=== PATIENT | male | born 1940 | race Caucasian/White ===

== ENCOUNTER 2016-12-27 05:35 | Inpatient (IN) | payer MEDICARE, BC ==
--- NOTE | ~2016-12-27 | DS ---
Discharge Summary [address] [place]. [address] NAME: REBEKA BRANDT : 39 STATUS : DIS IN PAT#: [id number] AGE: 76 ADM/REG DATE : 12/27/16 MR#: [id number] REPORT SERV DATE: 12/31/16 DICTATED BY: TOMÁS BARRERA DATE: 12/30/16 REPORT STATUS : Draft TRANSCRIBED BY: MODL DATE: 12/30/16 ADMISSION DATE: 12/27/2016 DISCHARGE DATE: 12/30/2016 DISCHARGE DIAGNOSES: Include: 1. Severe anemia of iron deficiency and blood loss, most recent hemoglobin and hematocrit 8.8 and 28.1. 2. Dyspnea with exertion, improved. 3. Hypothyroidism, new diagnosis TSH is 4.580, Synthroid started. 4. Hypertension. 5. History of coronary artery disease and prior drug-eluting stent placement in March of 2016 on Plavix and aspirin. 6. Hyperlipidemia. 7. Chronic constipation. DISCHARGE MEDICATIONS: Are as follows: Aspirin 81 mg daily, Plavix 75 mg daily, lisinopril 20 mg daily, Protonix 40 mg daily prescription written for this, Synthroid 25 mcg daily prescription written for this, metformin 500 mg p.o. in the morning 1000 mg in the evening. Lipitor 40 mg at bedtime, ferrous sulfate 325 mg p.o. twice a day with breakfast and supper, prescription written for this, and Colace 100 mg p.o. daily prescription written for that. HISTORY OF PRESENT ILLNESS: A very pleasant 76-year-old white male, who had originally presented for an elective heart catheterization but was found to be severely anemic and was symptomatic with this anemia with severe dyspnea with exertion. Hospitalist Service was asked to admit the patient for further evaluation and treatment. Please see my initial H and P. CONSULTANTS: Consultants during this admission include gastrointestinal Dr. Eldon Jacobson. PROCEDURES AND IMAGING DURING THIS ADMISSION: Include an upper GI endoscopy performed on 12/29/2016 that showed benign appearing intrinsic mild stenosis found at the gastroesophageal junction. Stomach normal and duodenum was normal. He then proceeded to have a colonoscopy on 12/29/2016, however, there was insufficient preparation and colonoscopy was repeated the following day, on 12/30/2016 showing a terminal ilium normal, multiple medium mouthed diverticula found in the sigmoid colon. No diverticulitis. CONTINUATION OF HOSPITAL COURSE: Initially given the profound anemia and symptoms of dyspnea with exertion and weakness, the patient was immediately transfused two units of packed red blood cells. He was also found to be severely iron deficient with a ferritin of 2, and the IV iron protocol was initiated while consultation was placed to GI. Interestingly, his orthostatics during this admission were reasonable and within normal limits. He had serial H and Hs follow his lab work and his H and H climbed with transfusion to 7.0 and 22.8 and then continued climbing up to 9.3 and 30.0. He did get an additional two units of packed red blood cells for a total of four during this admission which he tolerated well. He had the above described upper endoscopy and colonoscopy procedures and tolerated both those well. His symptoms have improved a great deal. He is able to be ambulating in the room and Discharge Summary [address] [place]. [address] NAME: REBEKA BRANDT : 39 STATUS : DIS IN PAT#: [id number] AGE: 76 ADM/REG DATE : 12/27/16 MR#: [id number] REPORT SERV DATE: 12/31/16 DICTATED BY: TOMÁS BARRERA DATE: 12/30/16 REPORT STATUS : Draft TRANSCRIBED BY: MODL DATE: 12/30/16 [facility]. He is eating and drinking, feeling much better. Current plan is for outpatient followup with Dr. Goodman BLAKELY for a capsule PillCam to further assess any bleeding. He will be discharged home on the above medication regimen. He will need to have his TSH rechecked in four to six weeks. I have instructed him to follow up with primary care in relation to this and also to follow up with primary care within the next week to have an H and H checked as well. The patient is in agreement with this plan going forward. Questions were answered at the bedside. Please note greater than 30 minutes were spent on this discharge for medication teaching, followup planning, and further disposition. Most recent H and H is 8.8 and 28.1. The patient's primary care was Dr. Kelton Luke, vegetable specker Dr. Cruz, and neurologist Dr. Hanson. CSC/MODL Tomás Barrera NP / [id number] CC: MD Kelton Parrish II, M.D.
--- NOTE | ~2016-12-27 | HP ---
History And Physical [address] [place]. [address] NAME: REBEKA BRANDT : 39 STATUS : REG REF PAT#: [id number] AGE: 76 ADM/REG DATE : 12/27/16 MR#: [id number] REPORT SERV DATE: 12/27/16 DICTATED BY: TOMÁS BARRERA DATE: 12/27/16 REPORT STATUS : Draft TRANSCRIBED BY: MODL DATE: 12/27/16 DATE OF ADMISSION: 12/27/2016 CHIEF COMPLAINT: Shortness of breath and profound anemia. HISTORY OF PRESENT ILLNESS: This is a pleasant, 76-year-old, white male, who presented to the [facility] today for an elective heart catheterization but was found to be significantly anemic with a hemoglobin of 4.8. He reports that he had a heart catheterization in 03/[address] Ceasar Cruz. At that time, had a drug-eluting stent placement and initially been placed on Brilinta but this was subsequently changed to Plavix and aspirin. Since then he has had some difficulties with persistent shortness of breath that has progressively worsened particularly over the last few weeks and has actually had an outpatient pulmonary workup done that was essentially normal with normal PFTs and normal CT scan of the chest, but he describes severe fatigue. He describes significant shortness of breath and dyspnea with exertion and even up into having difficulty with activities of daily living like getting out of bed and eating a meal just causes him to be extremely short of breath and extremely fatigued. He denies any chest pain. He denies any nausea or vomiting. Denies any abdominal pain. Does not relate that his stools have been bloody or dark. Does not relate that his urine has been bloody or abnormal as well but he states that he does not necessarily look in his stools either. The patient reports that even walking short distances causes him extreme dyspnea and shortness of breath and that he has also been somewhat dizzy almost to the point of blacking out when standing up but has not had any syncope and has not fallen during this course of time. Hospitalist Service was consulted and has been asked to admit this patient for further evaluation and workup. ALLERGIES: NO KNOWN DRUG OR FOOD ALLERGIES. PAST MEDICAL HISTORY: Includes remote CVA with some mild left-sided weakness, coronary artery disease, diabetes type 2, hyperlipidemia, and shortness of breath. SURGICAL HISTORY: Includes prostate surgery, appendectomy, back surgery, neck surgery, hernia repair. FAMILY HISTORY: He does not know of any significant family history from his mother or father. Brother with liver cancer and a sister with kidney cancer. COUNSELING SERVICES DIRECTOR: Carlita Cruz M.D. NEUROLOGIST: Carolina Hanson M.D. He denies any blood disorders or clotting disorders that he knows of in his family as well. He denies any tobacco use and states that he has occasional alcoholic drinks. REVIEW OF SYSTEMS: Negative except for pertinents mentioned above in HPI. History And Physical [address] [address] NAME: REBEKA BRANDT : 39 STATUS : REG REF PAT#: [id number] AGE: 76 ADM/REG DATE : 12/27/16 MR#: [id number] REPORT SERV DATE: 12/27/16 DICTATED BY: TOMÁS BARRERA DATE: 12/27/16 REPORT STATUS : Draft TRANSCRIBED BY: MODAngela DATE: 12/27/16 PHYSICAL EXAMINATION: VITAL SIGNS: 99% saturation on room air, temperature 98.1, pulse rate of 84, blood pressure 147/67, respiratory rate of 14. GENERAL: He is alert and oriented x3. No appreciable focal deficits on exam. He is cooperative and awake in no acute distress for the exam. No appreciable lymphadenopathy is noted. LUNGS: Clear to auscultation bilaterally. Normal respiratory effort. CARDIOVASCULAR: He has sinus rhythm per the monitor. Regular rate and rhythm. No murmurs, rubs, or gallops are appreciated on auscultation of the chest. ABDOMEN: Soft and nontender with active bowel sounds. He does have some +1 edema in bilateral lower extremities, particularly around the ankle. PERRLA is noted. Sclerae clear. Otherwise, skin is warm and dry and he has no significant rashes, bruising or wounds anywhere on his skin. LAB WORK: Shows a sodium 142, potassium 4.2, BUN of 13, creatinine 1.18. White blood cells 4.8, hemoglobin 4.6, hematocrit 16.5, platelets 388. INR of 1.1. ASSESSMENT: 1. Anemia of blood loss with H and H 4.6 and 16.5. 2. Persistent shortness of breath and dyspnea with exertion. 3. History of coronary artery disease, on antiplatelet therapy, prior stenting. 4. Diabetes type 2. 5. Hyperlipidemia. PLAN: We will plan on transfusing packed red blood cells 2 units following lab work closely with serial H and H's and we will obtain a CMP, hemoglobin A1c, TSH, and iron studies with a ferritin, B12, folate, TIBC. We will obtain urinalysis and also Hemoccult stool. We will also consult GI for further evaluation as likely gastrointestinal bleeding. We will admit the patient, Hospitalist Service to Telemetry Floor for further monitoring and transfusions and further workup and evaluation pending this initial testing to be performed. Also check orthostatics on the patient as well. I have updated the patient and his at the bedside. They are in agreement with this plan going forward. GREG/FRED Tomás Barrera NP / [id number] CC: Jimmie Pérez M.D.
--- NOTE | ~2016-12-27 | EGD ---
EGD REPORT [facility] [address] [place]. [address] NAME: REBEKA SPENCE : 39 STATUS : ADM IN PAT#: [id number] AGE: 76 ADM/REG DATE : 12/27/16 MR#: [id number] REPORT SERV DATE: 12/29/16 DICTATED BY: ELDON JOHNSON DATE: 12/29/16 REPORT STATUS : Draft TRANSCRIBED BY: [facility] DATE: 12/29/16 Endoscopy Center Patient Name: Rebeka Spence Date of : 1940 Attending MD: ELDON JOHNSON MD Procedure Date No Time: 12/29/2016 Procedure: Upper GI endoscopy Indications: Iron deficiency anemia Referring MD: SPENCER MEJIA Medicines: Propofol per Anesthesia Complications: No immediate complications. Procedure: Pre-Anesthesia Assessment: - ASA Grade Assessment: III - A patient with severe systemic disease. - ASA Grade Assessment: E - Emergency. After obtaining informed consent, the endoscope was passed under direct vision. Throughout the procedure, the patient's blood pressure, pulse, and oxygen saturations were monitored continuously. The GIF H190 [id number] was introduced through the mouth, and advanced to the third part of duodenum. The upper GI endoscopy was accomplished without difficulty. The patient tolerated the procedure well. Findings: A benign-appearing, intrinsic mild stenosis was found at the gastroesophageal junction and was traversed. The entire examined stomach was normal. The examined duodenum was normal. Impression: - Benign-appearing esophageal stricture. - Normal stomach. - Normal examined duodenum. Procedure Code(s): --- Professional --- 26482, Esophagogastroduodenoscopy, flexible, transoral; diagnostic, including collection of specimen(s) by brushing or washing, when performed (separate procedure) Diagnosis Code(s): --- Professional --- K22.2, Esophageal obstruction D50.9, Iron deficiency anemia, unspecified CPT copyright 2013 [employer]. All rights reserved. EGD REPORT [facility] [address] [place]. [address] NAME: REBEKA SPENCE : 39 STATUS : ADM IN [facility]#: [id number] AGE: 76 ADM/REG DATE : 12/27/16 MR#: [id number] REPORT SERV DATE: 12/29/16 DICTATED BY: ELDON JOHNSON. DATE: 12/29/16 REPORT STATUS : Draft TRANSCRIBED BY: [employer] SERVICES DATE: 12/29/16 The codes documented in this report are preliminary and upon sports book writer review may be revised to meet current compliance requirements. Edlon Johnson MD ELDON JOHNSON MD 12/29/2016 10:46 AM This report has been signed electronically. Number of Addenda: 0 Note Initiated On: 12/29/2016 10:21 AM Scope Withdrawal Time 0 hours 0 minutes 0 seconds [address] [place] [address]
--- NOTE | ~2016-12-27 | EGD ---
EGD REPORT [facility] [address] [address] NAME: REBEKA SPENCE : 39 STATUS : ADM IN PAT#: [id number] AGE: 76 ADM/REG DATE : 12/27/16 MR#: [id number] REPORT SERV DATE: 12/30/16 DICTATED BY: ELDON JOHNSON DATE: 12/30/16 REPORT STATUS : Draft TRANSCRIBED BY: [facility] DATE: 12/30/16 Endoscopy Center Patient Name: Rebeka Spence Date of : 1940 Attending MD: ELDON JOHNSON MD Procedure Date No Time: 12/30/2016 Procedure: Colonoscopy Indications: Iron deficiency anemia Referring MD: SPENCER MEJIA Medicines: Propofol per Anesthesia Complications: No immediate complications. Procedure: Pre-Anesthesia Assessment: - ASA Grade Assessment: III - A patient with severe systemic disease. After I obtained informed consent, the scope was passed under direct vision. Throughout the procedure, the patient's blood pressure, pulse, and oxygen saturations were monitored continuously. The PCF H190L [id number] was introduced through the anus and advanced to 5 cm into the ileum. The colonoscopy was performed without difficulty. The patient tolerated the procedure well. The quality of the bowel preparation was excellent. Scope withdrawal time was 8 minutes. Findings: The terminal ileum appeared normal. Multiple medium-mouthed diverticula were found in the sigmoid colon. The retroflexed view of the distal rectum and anal verge was normal and showed no anal or rectal abnormalities. Impression: - The examined portion of the ileum was normal. - Diverticulosis in the sigmoid colon. Recommendation: - Return patient to hospital [facility] for ongoing care. Procedure Code(s): --- Professional --- 29873, Colonoscopy, flexible, proximal to splenic flexure; diagnostic, with or without collection of specimen(s) by brushing or washing, with or without colon decompression (separate procedure) Diagnosis Code(s): --- Professional --- K57.30, Diverticulosis of large intestine without perforation or abscess without bleeding D50.9, Iron deficiency anemia, unspecified EGD REPORT [facility] [address] [place], [place] [address]. [address] NAME: REBEKA SPENCE : 39 STATUS : ADM IN [facility]#: [id number] AGE: 76 ADM/REG DATE : 12/27/16 MR#: [id number] REPORT SERV DATE: 12/30/16 DICTATED BY: ELDON JOHNSON. DATE: 12/30/16 REPORT STATUS : Draft TRANSCRIBED BY: [employer] DATE: 12/30/16 CPT copyright 2013 [employer]. All rights reserved. The codes documented in this report are preliminary and upon supervisor cold rolling review may be revised to meet current compliance requirements. Attending Participation: I personally performed the entire procedure. Eldon Johnson MD ELDON JOHNSON MD 12/30/2016 7:55 AM This report has been signed electronically. Number of Addenda: 0 Note Initiated On: 12/30/2016 7:03 AM Scope Withdrawal Time 0 hours 13 minutes [address] [place], [place] [address] [address]
--- NOTE | ~2016-12-27 | EGD ---
EGD REPORT [facility] [address] [place]. [address] NAME: REBEKA SPENCE : 39 STATUS : ADM IN PAT#: [id number] AGE: 76 ADM/REG DATE : 12/27/16 MR#: [id number] REPORT SERV DATE: 12/29/16 DICTATED BY: ELDON JOHNSON DATE: 12/29/16 REPORT STATUS : Draft TRANSCRIBED BY: [facility] DATE: 12/29/16 Endoscopy Center Patient Name: Rebeka Spence Date of : 1940 Attending MD: ELDON JOHNSON MD Procedure Date No Time: 12/29/2016 Procedure: Colonoscopy Indications: Iron deficiency anemia Referring MD: SPENCER MEJIA Medicines: Propofol per Anesthesia Complications: No immediate complications. Procedure: Pre-Anesthesia Assessment: - ASA Grade Assessment: III - A patient with severe systemic disease. - ASA Grade Assessment: E - Emergency. After I obtained informed consent, the scope was passed under direct vision. Throughout the procedure, the patient's blood pressure, pulse, and oxygen saturations were monitored continuously. The PCF H190L [id number] was introduced through the anus and advanced to the cecum, identified by appendiceal orifice and ileocecal valve. The colonoscopy was performed without difficulty. The quality of the bowel preparation was inadequate. Findings: Multiple medium-mouthed diverticula were found in the sigmoid colon. Semi-solid stool was found in the cecum, interfering with visualization. Semi-solid stool was found in the ascending colon, interfering with visualization. Impression: - Preparation of the colon was inadequate. - Diverticulosis in the sigmoid colon. - Stool in the cecum. - Stool in the ascending colon. Recommendation: - Repeat colonoscopy tomorrow because the bowel preparation was poor. Procedure Code(s): --- Professional --- 56645, Colonoscopy, flexible, proximal to splenic flexure; diagnostic, with or without collection of specimen(s) by brushing or washing, with or without colon decompression (separate procedure) Diagnosis Code(s): --- Professional --- EGD REPORT [address] [place] [address] NAME: REBEKA SPENCE : 39 STATUS : ADM IN [facility]#: [id number] AGE: 76 ADM/REG DATE : 12/27/16 MR#: [id number] REPORT SERV DATE: 12/29/16 DICTATED BY: ELDON JOHNSON. DATE: 12/29/16 REPORT STATUS : Draft TRANSCRIBED BY: [employer] DATE: 12/29/16 K57.30, Diverticulosis of large intestine without perforation or abscess without bleeding D50.9, Iron deficiency anemia, unspecified CPT copyright 2013 [employer]. All rights reserved. The codes documented in this report are preliminary and upon line maintainer review may be revised to meet current compliance requirements. Eldon Johnson MD ELDON JOHNSON MD 12/29/2016 10:51 AM This report has been signed electronically. Number of Addenda: 0 Note Initiated On: 12/29/2016 10:14 AM Scope Withdrawal Time 0 hours 7 minutes [address] [place], [place] [address] [address]
--- NOTE | ~2016-12-27 | CN ---
Consultation Report [facility] [address] [place]. [address] NAME: REBEKA BRANDT : 39 STATUS : ADM IN PAT#: [id number] AGE: 76 ADM/REG DATE : 12/27/16 MR#: [id number] REPORT SERV DATE: 12/28/16 DICTATED BY: ELDON JOHNSON DATE: 12/28/16 REPORT STATUS : Draft TRANSCRIBED BY: MODL DATE: 12/28/16 CONSULTATION DATE OF CONSULTATION: HISTORY OF PRESENT ILLNESS: This patient had a heart cath and stents placed in March of 2016. He had drug-eluting stents, was placed on Brilinta, changed to Plavix and aspirin. He has had difficulty with shortness of breath. Denied any chest pain. Denied any gross bleeding. His hemoglobin was 4.8. He has had endoscopic evaluation, may be six or seven years ago. PAST SURGICAL HISTORY: Appendectomy, back surgery, neck surgery. PHYSICAL EXAMINATION: GENERAL: Alert, in no acute distress. VITAL SIGNS: Blood pressure 140/70. CHEST: Clear to A and P. CARDIAC: Normal. ABDOMEN: Soft, nontender. CARDIAC: Normal. Repeat hemoglobin 8.2. Ferritin was 2. Iron was 9. IMPRESSION: Iron deficiency anemia, likely secondary to GI blood loss, probably related to aspirin and Plavix. PLAN: 1. EGD and colon. 2. Okay to continue aspirin for now. MG/MODL Eldon Johnson M.D. / [id number] CC: MD Kelton Parrish II, M.D.
[~2016-12-27 05:35] MED LIST: ASA5GR PO; ASAB PO; ATEN25 PO; BENTYL20 PO; BRILINTA90 MG PO; DIABETA5 PO; ENDOCET1 TA3 PO; GLUCOTROL5 PO; GLUCPH PO; HALF81; IMDUR30 PO; LINZESS; LIPITOR40 PO; LORT7 PO; LORTAB 5 PO; LORTAB10 PO; MIRALAXPKT PO; NEUR400 PO; NEXIUM40 PO; NORV25 PO; OXECTA5 MG PO; PLAVIX PO; PRAVAC PO; PRAVACHOL40 MG PO; PRILO PO; PRILOSEC40 MG PO; PRIN10 PO; PRIN20 PO; REG5 PO; SENTAB PO; ULTRACET PO; XALAT OPH; [UNRECOGNIZED DRUG - REMARK] PO
[2016-12-27 06:30] LABS: BUN (BLOOD UREA NITROGEN) 13 MG/DL (6-23); CALCIUM, SERUM 9.3 MG/DL (8.5-10.4); CHLORIDE, SERUM 107 MMOL/L (96-112); CHOLESTEROL 121 MG/DL (< 200); CO2 (CARBON DIOXIDE) 23 MMOL/L (24-34); CREATININE 1.18 MG/DL (0.70-1.30); GFR AFRICAN AMERICAN 69 ML/MIN (>=60); GFR NON AFRICAN AMERICAN 59 ML/MIN (>=60); HDL CHOLESTEROL 61 MG/DL (> 39); LDL CHOLESTEROL 43 MG/DL (< 130); NON-HDL CHOLESTEROL 60 MG/DL (< 160); POTASSIUM, SERUM 4.2 MMOL/L (3.5-5.3); SODIUM, SERUM 142 MMOL/L (135-148); TRIGLYCERIDE 88 MG/DL (< 150)
[2016-12-27 06:31] LABS: GLUCOSE, SERUM 208 MG/DL (60-99)
[2016-12-27 07:09] LABS: BASOPHILS 1.1 %; BASOPHILS ABSOLUTE 0.05 10/3/uL (0.0-0.16); EOSINOPHILS 4.6 %; EOSINOPHILS ABSOLUTE 0.22 10/3/uL (0.0-0.53); LYMPHOCYTES 33.1 %; LYMPHOCYTES ABSOLUTE 1.57 10/3/uL (0.67-4.30); MEAN PLATELET VOLUME 8.4 fL (9.2-13.0); MONOCYTES 7.4 %; MONOCYTES ABSOLUTE 0.35 10/3/uL (0.21-1.20); NEUTROPHILS 53.8 %; NEUTROPHILS ABSOLUTE 2.56 10/3/uL (2.02-8.40); PLATELET COUNT 388 10/3/uL (150-400); WHITE BLOOD CELLS 4.8 10/3/uL (4.5-10.5)
[2016-12-27 07:10] LABS: HEMATOCRIT 16.5 % (40.0-51.0); HEMOGLOBIN 4.6 g/dL (13.6-17.8); MEAN CORPUS HGB CONC 27.9 g/dL (32.0-36.0); MEAN CORPUSCULAR HEMOGLOB 18.2 pg (26.0-34.0); MEAN CORPUSCULAR VOLUME 65.2 fL (80-100); RBC DISTRIBUTION WIDTH 19.2 % (12.0-16.0); RED CELL COUNT 2.53 10/6/uL (4.7-6.1)
[2016-12-27 07:12] LABS: MANUAL DIFF NO %
[2016-12-27 07:45] LABS: ANISOCYTOSIS 1+ (5-10/OIF) (0-5/OIF); PLATELET ESTIMATE ADQ (ADEQUATE)
[2016-12-27 07:46] LABS: ELLIPTOCYTES 1+ (3-10/OIF) (0-2/OIF); HYPOCHROMIA 3+ (>30/OIF) (0-2/OIF); MICROCYTES 4+ (>50/OIF) (0-5/OIF); POIKILOCYTOSIS 1+ (5-10/OIF) (0-5/OIF)
[2016-12-27 07:47] LABS: HELMET CELLS OCC (0-2/OIF); TARGET CELLS OCC (1-2/OIF) (0-1/OIF)
[2016-12-27 07:48] LABS: BURR CELLS 1+ (3-10/OIF) (0-2/OIF)
[2016-12-27 08:08] LABS: INTERNATIONAL NORMAL RATI 1.1 UNITS (-); PARTIAL THROMBO TIME 26.3 SEC (22.5-37.2); PROTIME (NOT ORD) 14.3 SEC (12.0-14.5)
[2016-12-27 11:36] LABS: % IRON SAT 2 % (20-50); A/G RATIO 1.1 (0.7-1.9); ALKALINE PHOSPHATASE 79 U/L (45-117); FERRITIN 2 NG/ML (26-388); GLOBULIN 3.5 G/DL (2.5-4.1); IRON BINDING CAPACITY 553 MCG/DL (250-450); IRON, SERUM 9 MCG/DL (35-150); SGOT(AST) 24 U/L (5-40); SGPT(ALT) 25 U/L (5-65); TOTAL BILIRUBIN 0.2 MG/DL (0-1.2); TOTAL PROTEIN 7.5 G/DL (6.0-8.5)
[2016-12-27 11:38] LABS: FOLATE 27.1 NG/ML (>5.2)
[2016-12-27 15:31] LABS: HEMATOCRIT 22.8 % (40.0-51.0)
[2016-12-27 23:16] LABS: ASCORBIC ACID (UR NOT ORDER) NEG (NEG); BILIRUBIN, URINE NEGATIVE (NEG); KETONE, URINE NEGATIVE (NEG); LEUKOCYTE ESTERASE(NOT OR NEG (NEG); WBC (NOT ORDERED) (RFLEX) < 1 (0-5)
[2016-12-28 07:10] LABS: BASOPHILS 0.9 %; BASOPHILS ABSOLUTE 0.06 10/3/uL (0.0-0.16); EOSINOPHILS 4.7 %; HEMOGLOBIN 8.2 g/dL (13.6-17.8); IMMATURE GRANULOCYTES 0.2 %; IMMATURE GRANULOCYTES ABSOLUTE 0.01 10/3/uL (0.0-0.11); LYMPHOCYTES 36.6 %; LYMPHOCYTES ABSOLUTE 2.33 10/3/uL (0.67-4.30); MEAN PLATELET VOLUME 8.7 fL (9.2-13.0); MONOCYTES 6.9 %; MONOCYTES ABSOLUTE 0.44 10/3/uL (0.21-1.20); NEUTROPHILS 50.7 %; NEUTROPHILS ABSOLUTE 3.23 10/3/uL (2.02-8.40); PLATELET COUNT 364 10/3/uL (150-400); WHITE BLOOD CELLS 6.4 10/3/uL (4.5-10.5)
[2016-12-28 07:17] LABS: BUN (BLOOD UREA NITROGEN) 13 MG/DL (6-23); CALCIUM, SERUM 8.3 MG/DL (8.5-10.4); CHLORIDE, SERUM 108 MMOL/L (96-112); CO2 (CARBON DIOXIDE) 23 MMOL/L (24-34); CREATININE 0.91 MG/DL (0.70-1.30); GFR AFRICAN AMERICAN 94 ML/MIN (>=60); GFR NON AFRICAN AMERICAN 81 ML/MIN (>=60); GLUCOSE, SERUM 174 MG/DL (60-99); POTASSIUM, SERUM 4.1 MMOL/L (3.5-5.3); SODIUM, SERUM 141 MMOL/L (135-148)
[2016-12-28 07:23] LABS: HEMATOCRIT 26.2 % (40.0-51.0); MANUAL DIFF NO %; MEAN CORPUS HGB CONC 31.3 g/dL (32.0-36.0); MEAN CORPUSCULAR VOLUME 73.4 fL (80-100); RED CELL COUNT 3.57 10/6/uL (4.7-6.1)
[2016-12-28 07:34] LABS: PLATELET ESTIMATE ADQ (ADEQUATE)
[2016-12-28 07:35] LABS: ELLIPTOCYTES 1+ (3-10/OIF) (0-2/OIF)
[2016-12-28 07:37] LABS: SCHISTOCYTES OCC (0-2/OIF)
[2016-12-29 08:40] LABS: BASOPHILS 0.7 %; BASOPHILS ABSOLUTE 0.05 10/3/uL (0.0-0.16); EOSINOPHILS 4.8 %; EOSINOPHILS ABSOLUTE 0.34 10/3/uL (0.0-0.53); HEMOGLOBIN 9.3 g/dL (13.6-17.8); IMMATURE GRANULOCYTES 0.4 %; IMMATURE GRANULOCYTES ABSOLUTE 0.03 10/3/uL (0.0-0.11); LYMPHOCYTES 33.2 %; LYMPHOCYTES ABSOLUTE 2.33 10/3/uL (0.67-4.30); MEAN CORPUSCULAR HEMOGLOB 22.9 pg (26.0-34.0); MEAN CORPUSCULAR VOLUME 73.9 fL (80-100); MONOCYTES ABSOLUTE 0.49 10/3/uL (0.21-1.20); NEUTROPHILS 53.9 %; NEUTROPHILS ABSOLUTE 3.78 10/3/uL (2.02-8.40); PLATELET COUNT 395 10/3/uL (150-400); RBC DISTRIBUTION WIDTH 23.7 % (12.0-16.0); RED CELL COUNT 4.06 10/6/uL (4.7-6.1)
[2016-12-29 08:41] LABS: MANUAL DIFF NO %
[2016-12-29 08:49] LABS: BUN (BLOOD UREA NITROGEN) 12 MG/DL (6-23); CHLORIDE, SERUM 107 MMOL/L (96-112); CO2 (CARBON DIOXIDE) 25 MMOL/L (24-34); CREATININE 0.97 MG/DL (0.70-1.30); GFR AFRICAN AMERICAN 87 ML/MIN (>=60); GFR NON AFRICAN AMERICAN 75 ML/MIN (>=60); GLUCOSE, SERUM 158 MG/DL (60-99); POTASSIUM, SERUM 4.2 MMOL/L (3.5-5.3); SODIUM, SERUM 142 MMOL/L (135-148)
[2016-12-29 08:58] LABS: HYPOCHROMIA 1+ (3-10/OIF) (0-2/OIF); MICROCYTES 1+ (5-10/OIF) (0-5/OIF); PLATELET ESTIMATE ADQ (ADEQUATE); POLYCHROMASIA 1+ (2-5/OIF) (0-1/OIF)
[2016-12-29 08:59] LABS: SCHISTOCYTES FEW (3-10/OIF)
[2016-12-29 09:00] LABS: OVALOCYTES 1+ (3-10/OIF) (0-2/OIF)
[2016-12-30 05:21] LABS: BASOPHILS 1.1 %; BASOPHILS ABSOLUTE 0.07 10/3/uL (0.0-0.16); EOSINOPHILS 4.2 %; EOSINOPHILS ABSOLUTE 0.28 10/3/uL (0.0-0.53); HEMATOCRIT 28.1 % (40.0-51.0); HEMOGLOBIN 8.8 g/dL (13.6-17.8); IMMATURE GRANULOCYTES 0.5 %; IMMATURE GRANULOCYTES ABSOLUTE 0.03 10/3/uL (0.0-0.11); LYMPHOCYTES 34.8 %; LYMPHOCYTES ABSOLUTE 2.32 10/3/uL (0.67-4.30); MEAN CORPUS HGB CONC 31.3 g/dL (32.0-36.0); MEAN CORPUSCULAR HEMOGLOB 23.2 pg (26.0-34.0); MEAN CORPUSCULAR VOLUME 74.1 fL (80-100); MEAN PLATELET VOLUME 8.8 fL (9.2-13.0); MONOCYTES 7.4 %; MONOCYTES ABSOLUTE 0.49 10/3/uL (0.21-1.20); NEUTROPHILS ABSOLUTE 3.47 10/3/uL (2.02-8.40); PLATELET COUNT 346 10/3/uL (150-400); RBC DISTRIBUTION WIDTH 24.3 % (12.0-16.0); RED CELL COUNT 3.79 10/6/uL (4.7-6.1); WHITE BLOOD CELLS 6.7 10/3/uL (4.5-10.5)
[2016-12-30 05:25] LABS: MANUAL DIFF NO %
[2016-12-30 05:30] LABS: CALCIUM, SERUM 8.8 MG/DL (8.5-10.4); CHLORIDE, SERUM 107 MMOL/L (96-112); CO2 (CARBON DIOXIDE) 24 MMOL/L (24-34); CREATININE 0.87 MG/DL (0.70-1.30); GFR AFRICAN AMERICAN 96 ML/MIN (>=60); GFR NON AFRICAN AMERICAN 83 ML/MIN (>=60); POTASSIUM, SERUM 3.6 MMOL/L (3.5-5.3); SODIUM, SERUM 143 MMOL/L (135-148)
[2016-12-30 05:32] LABS: BUN (BLOOD UREA NITROGEN) 8 MG/DL (6-23); GLUCOSE, SERUM 125 MG/DL (60-99)
[2016-12-30 05:47] LABS: GIANT PLATELET FEW; MICROCYTES 1+ (5-10/OIF) (0-5/OIF)
[2016-12-30 05:49] LABS: RBC MORPHOLOGY ABN (NORMAL)
[2016-12-30] MEDS ORDERED: SYN.025B PO (15:51)
[2016-12-30] MEDS ORDERED: DSS PO (15:52)
[2016-12-30] MEDS ORDERED: FERROUS SULF325 M1 PO (15:52)
[2016-12-30] MEDS ORDERED: PROTONIX PO (15:53)
== END 2016-12-30 18:00 | disposition home or self-care (01) | DRG 812 ==
LOC: CORLMH 05:35 → SSU1 05:40 → 6NO 13:42
PROVIDERS: Internal Medicine; Internal Medicine Cardiovascular Disease; Internal Medicine Gastroenterology; Nurse Practitioner Family
PROC: 0DJD8ZZ Inspection of Lower Intestinal Tract, Via Natural or Artificial Opening Endoscopic (ICD-10-PCS; principal; 2016-12-29 09:30)
PROC: 0DB48ZX Excision of Esophagogastric Junction, Via Natural or Artificial Opening Endoscopic, Diagnostic (ICD-10-PCS; 2016-12-29 09:30)
PROC: 0DJD8ZZ Inspection of Lower Intestinal Tract, Via Natural or Artificial Opening Endoscopic (ICD-10-PCS; 2016-12-30)
PROC: 30233N1 Transfusion of Nonautologous Red Blood Cells into Peripheral Vein, Percutaneous Approach (ICD-10-PCS; 2016-12-30)
DX: D50.0 Iron deficiency anemia secondary to blood loss (chronic) (principal); I69.354 Hemiplegia and hemiparesis following cerebral infarction affecting left non-dominant side; R06.00 Dyspnea, unspecified; E11.9 Type 2 diabetes mellitus without complications; K22.2 Esophageal obstruction; K57.30 Diverticulosis of large intestine without perforation or abscess without bleeding; E03.9 Hypothyroidism, unspecified; E78.5 Hyperlipidemia, unspecified; I25.10 Atherosclerotic heart disease of native coronary artery without angina pectoris; K59.00 Constipation, unspecified; Z95.5 Presence of coronary angioplasty implant and graft; Z79.02 Long term (current) use of antithrombotics/antiplatelets; Z79.82 Long term (current) use of aspirin; Z90.79 Acquired absence of other genital organ(s); I10 Essential (primary) hypertension
CPT/HCPCS: 36415; 80048; 80053; 80061; 81001; 82272; 82607; 82728; 82746; 82962; 83036; 83540; 83550; 83735; 84443; 85014; 85018; 85025; 85610; 85730; 86850; 86900; 86901; 86920; 93005; A9270-GY; C9113; G0463; J2916; P9016